=== PATIENT | female | born 1970 | race Caucasian/White ===

== ENCOUNTER → 2017-11-27 | Day surgery (SDC) | payer OTHER ==
--- NOTE | 2017-11-24 15:19 | History & Physical Pre-Op ---
General Information and HPI History of Present Illness: Holly is a 47-year-old female with a long-standing and worsening complaint of painful hammertoes involving the fourth and fifth digits right foot. The patient has undergone an extended course of conservative care, including shoe gear and activity modification, rest, immobilization course of NSAIDs. None of this is yielded her any significant relief. The patient presents today for preoperative surgical consultation. Past History Medical History Psychiatric: bipolar disease Surgical History Pertinent Surgical History: tubal ligation Exam & Diagnostic Data Physical Exam: Lungs clear bilaterally. Heart sounds rate and rhythm regular. Lower extremity physical exam demonstrates intact pedal pulses bilaterally. Both dorsalis pedis and posterior tibial arteries are palpable bilaterally. Patient without any sensory motor deficits. Deep tendon reflexes grossly intact. Patient noted to have same and pain with palpation to the dorsal aspect of the proximal interphalangeal joints of the fourth and fifth digits right foot. Assessment/Plan Assessment/Plan: Painful hammertoes right foot. A lengthy discussion reviewing both surgical and conservative options was held the patient at bedside and the patient elects to go forward with surgery despite the risks. As Ranked By This Provider Problem List: 1. Other hammer toe(s) (acquired), right foot Attending MD Review Statement Attending Statement Attending MD Statement: examined this patient
[~2017-11-27] VITALS: Ht 163.8 cm; Wt 75.7 kg
--- NOTE | 2017-11-27 09:15 | Operative Report ---
Operative/Inv Procedure Report Surgery Date: 11/27/17 Name of Procedure: 1 arthroplasty fourth toe right foot 2 arthroplasty fifth toe right foot 3 intraoperative administration of ankle block anesthesia Pre-Operative Diagnosis: 1 hammertoe fourth toe right foot 2 hammertoe fifth toe right foot Post-Operative Diagnosis: The same Estimated Blood Loss: scant Surgeon/Hand Tapper: Kaiden Middleton DPM, DPM Anesthesia: moderate sedation, block Operative/Procedure Note Note: After obtaining informed consent the patient was brought to the operating room and placed on the operating table in the supine position. The patient was then securely fastened to the operating table utilizing safety belt. After administration of IV sedation, 10 mL of 0.5% Marcaine plain was infiltrated about the patient's right ankle. A well-padded ankle tourniquet was placed about the patient's right lower extremity. 2 g of Ancef were delivered intravenously times one dose. The right foot and ankle within scrubbed, prepped and draped in usual aseptic manner. Right lower extremity was elevated to examine to limb, which point the ankle tourniquet was inflated 250 mmHg. Attention directed dorsal aspect of the proximal interphalangeal joints of the fourth and fifth digits. Converging semielliptical sent incisions centered over the joints were incised with a 15 blade and the dissection was carried down to the subtenons tissues, with the ellipses of skin were freed and passed from the operative field. Transverse tenotomies were then performed exposing the heads of the proximal phalanges of the fourth and fifth digits. Sagittal bone saw was then utilized to resect the heads. The extensor tendon was reapproximated 4-0 Vicryl and the skin edges reprepped with 4-0 nylon. Incision was dressed with Xeroform 4 x 4's Kerlix and an Dani wrap. The patient was noted to tolerate both procedure and anesthesia well and the patient was transported from the operating room to recovery with vital signs stable best assess intact to all digits right foot. Please cc a copy of this dictation to Norris Price DPM.
== END ==
LOC: STS 01:22
DX: M20.41 Other hammer toe(s) (acquired), right foot (principal); R56.9 Unspecified convulsions; J45.909 Unspecified asthma, uncomplicated
CPT/HCPCS: J0690; J1100; J1885; J2001; J2250